=== PATIENT | male | born 1965 | race African-American/Black ===

== ENCOUNTER 2021-06-06 20:11 | Emergency (ER) | payer OTHER ==
[2021-06-06 20:31] VITALS: TEMP 98.3; BMI 38.7
[2021-06-06 23:09] VITALS: BP 141/87; PULSE 67
[2021-06-07 01:44] LABS: BASO % 0.3 % (0-2.0); EOS % 4.2 % (0-4.5); HEMATOCRIT 37.6 % (35.4-49); HEMOGLOBIN 12.6 GM/dL (11.7-16.9); LYMPH % 34.1 % (8-40); MCH 27.5 pg (25.7-33.7); MCHC 33.4 g/dl (32.0-35.9); MEAN CELL VOLUME 82.3 fl (80-96); MEAN PLT VOLUME 7.7 fl (7.5-11.1); MONO % 8.5 % (3.8-10.2); NEUT % 52.9 % (42.8-82.8); PLATELET COUNT 213 10^3/uL (134-434); RBC 4.57 M/mm3 (4.00-5.60); RDW 14.8 % (11.9-15.9); WHITE BLOOD COUNT 6.6 K/mm3 (4.0-10.0)
[2021-06-07 02:13] LABS: INR 1.08 (0.83-1.09); PROTHROMBIN TIME (PATIENT) 12.1 SEC (9.7-13.0)
[2021-06-07 02:15] LABS: CHLORIDE 105 mmol/L (98-107); SODIUM 139 mmol/L (136-145)
[2021-06-07 02:16] LABS: ACTIVATED PTT 27.9 SECONDS (25.2-36.5); ANION GAP 8 MMOL/L (8-16); CALCIUM 9.1 mg/dL (8.5-10.1); CO2 26 mmol/L (21-32); GLUCOSE,RANDOM 83 mg/dL (74-106)
[2021-06-07 02:17] LABS: ALBUMIN 3.7 g/dl (3.4-5.0)
[2021-06-07 02:18] LABS: BLOOD UREA NITROGEN 19.6 mg/dL (7-18)
[2021-06-07 02:21] LABS: CREATININE 1.1 mg/dL (0.55-1.3); SGOT/AST 19 U/L (15-37); SGPT/ALT 44 U/L (13-61)
[2021-06-07 02:23] LABS: BILIRUBIN,TOTAL 0.3 mg/dL (0.2-1); TOT PROT 7.1 g/dl (6.4-8.2)
[2021-06-07 02:24] LABS: ALK PHOS 52 U/L (45-117)
== END 2021-06-07 03:39 | disposition home or self-care (01) ==
LOC: JER 20:11
DX: I10 Essential (primary) hypertension (principal); R51.9 Headache, unspecified
CPT/HCPCS: 36415; 71046-TC-FY; 80053; 82550; 82553; 83735; 84484; 85025; 85610; 85730; 93005; 93010; 99285-25